=== PATIENT | male | born 1955 | race Caucasian/White ===

== ENCOUNTER 2016-11-02 07:59 | Day surgery (SDC) | payer BC ==
[2016-10-26 09:20] LABS: BASOPHILS 0.2 %; BASOPHILS ABSOLUTE 0.01 10/3/uL (0.0-0.16); EOSINOPHILS 1.6 %; EOSINOPHILS ABSOLUTE 0.07 10/3/uL (0.0-0.53); HEMATOCRIT 44.1 % (40.0-51.0); HEMOGLOBIN 14.6 g/dL (13.6-17.8); IMMATURE GRANULOCYTES 0.2 %; IMMATURE GRANULOCYTES ABSOLUTE 0.01 10/3/uL (0.0-0.11); LYMPHOCYTES 24.1 %; LYMPHOCYTES ABSOLUTE 1.08 10/3/uL (0.67-4.30); MEAN CORPUS HGB CONC 33.1 g/dL (32.0-36.0); MEAN CORPUSCULAR HEMOGLOB 28.6 pg (26.0-34.0); MEAN CORPUSCULAR VOLUME 86.3 fL (80-100); MEAN PLATELET VOLUME 10.7 fL (9.2-13.0); MONOCYTES 9.6 %; MONOCYTES ABSOLUTE 0.43 10/3/uL (0.21-1.20); NEUTROPHILS 64.3 %; NEUTROPHILS ABSOLUTE 2.89 10/3/uL (2.02-8.40); PLATELET COUNT 203 10/3/uL (150-400); RBC DISTRIBUTION WIDTH 13.7 % (12.0-16.0); RED CELL COUNT 5.11 10/6/uL (4.7-6.1); WHITE BLOOD CELLS 4.5 10/3/uL (4.5-10.5)
[2016-10-26 09:21] LABS: MANUAL DIFF NO %
[2016-10-26 09:38] LABS: BUN (BLOOD UREA NITROGEN) 16 MG/DL (6-23); CALCIUM, SERUM 9.7 MG/DL (8.5-10.4); CHLORIDE, SERUM 107 MMOL/L (96-112); CO2 (CARBON DIOXIDE) 28 MMOL/L (24-34); CREATININE 0.96 MG/DL (0.70-1.30); GFR AFRICAN AMERICAN 98 ML/MIN (>=60); GFR NON AFRICAN AMERICAN 85 ML/MIN (>=60); GLUCOSE, SERUM 56 MG/DL (60-99); POTASSIUM, SERUM 4.4 MMOL/L (3.5-5.3); SODIUM, SERUM 144 MMOL/L (135-148)
--- NOTE | ~2016-11-02 | OP ---
Record Of Operation [facility] [address] [place]. 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 PROCEDURE: Port-A-Cath removal. ANESTHESIA: Local with sedation. ESTIMATED BLOOD LOSS: Nil. FLUIDS: Crystalloid. SPECIMEN: Port. DRAINS: None. COMPLICATIONS: None. CONDITION: Good. INDICATIONS: Mr. Olvera is a 61-year-old, who has completed a course of chemoradiation, appears to have had a good result, and we were asked to now remove Port-A-Cath. After getting approval from Medical Oncology, we are proceeding. PROCEDURE IN DETAIL: After being identified in the preoperative holding, Mr. Olvera was brought to OR, positioned supine, and sedated. Neck and chest were prepped and draped sterilely. Ancef given intravenously. After time-out, we infiltrated 50:50 mixture 0.5% Marcaine mixed equally with 1% lidocaine with epinephrine in the skin and subcu around the left subclavian port. We incised the port placement scar, retracted skin with a Ornelas type retractor. Using the scalpel, dissected down to and exposed the port. The port was then grasped with a Casandra clamp and removed. There was some back bleeding from the tubing tract that was controlled with a 3-0 Vicryl stick tie. The subcu was closed with running 3-0 Vicryl. Dermis was closed with running 4-0 Monocryl followed by Benzoin, Steri-Strips, and sterile dressing. Mr. Olvera tolerated the surgery well. He was recovered from the sedation, transported to day surgery area in good condition. JULISSA/KULDEEP Eddie Record Of Operation [facility] [address] [place] [address] NAME: BETTINA OLVERA : 55 STATUS : [facility] PAT#: [id number] AGE: 61 ADM/REG DATE : 11/02/16 MR#: [id number] REPORT SERV DATE: 11/02/16 DICTATED BY: EDDIE HOLCOMB DATE: 11/02/16 REPORT STATUS : Draft TRANSCRIBED BY: KULDEEP DATE: 11/02/16 Leeanna Holcomb / [id number] CC: Leeanna Borjas
[~2016-11-02 07:59] MED LIST: CIALIS20 MG PO
== END 2016-11-02 12:13 | disposition home or self-care (01) ==
LOC: SDC 07:59
PROVIDERS: Surgery
PROC: 0JPV0XZ Removal of Tunneled Vascular Access Device from Upper Extremity Subcutaneous Tissue and Fascia, Open Approach (ICD-10-PCS; principal; 2016-11-02 10:00)
DX: C44.320 Squamous cell carcinoma of skin of unspecified parts of face (principal); I10 Essential (primary) hypertension
CPT/HCPCS: 80048; 85025; 93005; J0690; J2250; J3010